=== PATIENT | male | born 1955 | race Caucasian/White ===

== ENCOUNTER 2017-09-04 13:54 | Day surgery (SDC) | payer OTHER ==
[~2017-09-04] VITALS: Ht 180.3 cm; Wt 106.6 kg
[~2017-09-04 13:54] MED LIST: LANS30EC PO; Norco 5-325 Ta1 EACH PO; TADA10TA PO; Zithromax250 MG PO
== END 2017-09-04 16:00 | disposition home or self-care (01) ==
LOC: ORSCSDS 13:54
PROVIDERS: Surgery
PROC: 0DBK8ZX Excision of Ascending Colon, Via Natural or Artificial Opening Endoscopic, Diagnostic (ICD-10-PCS; principal; 2017-09-04 15:15)
DX: Z12.11 Encounter for screening for malignant neoplasm of colon (principal); D12.2 Benign neoplasm of ascending colon; Z86.010 Personal history of colon polyps; Z80.0 Family history of malignant neoplasm of digestive organs; K21.9 Gastro-esophageal reflux disease without esophagitis; R03.0 Elevated blood-pressure reading, without diagnosis of hypertension; E66.9 Obesity, unspecified; Z68.34 Body mass index [BMI] 34.0-34.9, adult; Z79.899 Other long term (current) drug therapy
CPT/HCPCS: 88305; J7120

== ENCOUNTER 2017-09-11 05:33 | Day surgery (SDC) | payer OTHER ==
[~2017-09-11] VITALS: Ht 154.9 cm; Wt 110.7 kg
== END 2017-09-11 22:57 | disposition home or self-care (01) ==
LOC: ORSCMMR 05:33
PROVIDERS: Surgery
PROC: 0WUF0JZ Supplement Abdominal Wall with Synthetic Substitute, Open Approach (ICD-10-PCS; principal; 2017-09-11 07:30)
DX: K42.0 Umbilical hernia with obstruction, without gangrene (principal)
CPT/HCPCS: C1781; J0330; J0690; J1100; J2250; J2405; J3010; J7120

== ENCOUNTER 2018-05-28 08:13 | Emergency (ER) | payer OTHER ==
[~2018-05-28] VITALS: Ht 180.3 cm; Wt 99.8 kg
[2018-05-28 09:23] LABS: BASOPHILS ABSOLUTE AUTO 0.08 K/mm3 (0.00-0.23); BASOPHILS PERCENT AUTO 1 % (0-2); CPK Creatine Kinase 87 U/L (39-308); EOSINOPHILS ABSOLUTE AUTO 0.21 K/mm3 (0.00-0.68); EOSINOPHILS PERCENT AUTO 3 % (0-6); Hematocrit 44.1 % (37.0-53.0); IMMATURE GRAN ABSOLUTE AUTO 0.28 K/mm3 (0.00-0.10); IMMATURE GRAN PERCENT AUTO 3 % (0-1); LYMPHOCYTES ABSOLUTE AUTO 2.25 K/mm3 (0.84-5.20); LYMPHOCYTES PERCENT AUTO 28 % (21-46); MONOCYTES ABSOLUTE AUTO 0.83 K/mm3 (0.16-1.47); MONOCYTES PERCENT AUTO 10 % (4-13); Magnesium, Blood 2.1 mg/dL (1.6-2.4); Mean Corpuscular HGB 31.5 pg (26.0-34.0); Mean Corpuscular Volume 93 fL (80-100); Mean Platelet Volume 9.1 fL (9.1-12.4); NEUTROPHILS ABSOLUTE AUTO 4.49 K/mm3 (1.96-9.15); NEUTROPHILS PERCENT AUTO 55 % (41-73); Platelet Count 185 K/mm3 (150-400); RDW Coefficient Variation 11.4 % (11.7-14.2); RDW Standard Deviation 38.5 fL (35.1-46.3); Red Blood Cell Count 4.76 M/mm3 (4.30-5.90); Troponin I <0.015 ng/mL (0.000-0.040); White Blood Cell Count 8.14 K/mm3 (4.00-11.30)
[2018-05-28 09:24] LABS: Alanine Aminotransfer (ALT/SGP 42 U/L (12-78); Albumin, Blood 3.7 g/dL (3.4-5.0); Albumin/Globulin Ratio 1.1 (0.8-1.8); Alk Phos 81 U/L (50-136); Anion Gap 8 mmol/L (6-16); Aspartate Aminotrans (AST/SGOT 23 U/L (12-37); Bilirubin, Total 0.3 mg/dL (0.1-1.0); Blood Urea Nitrogen 14 mg/dL (8-24); Bun/Creatinine Ratio 13.9 (12.0-20.0); CO2, Blood 25 mmol/L (21-32); Calcium, Blood 8.3 mg/dL (8.5-10.1); Chloride, Blood 105 mmol/L (98-108); Creatinine, Blood 1.01 mg/dL (0.60-1.20); Globulin, Blood 3.5 g/dL (2.2-4.0); Glomerular Filtration Rate >60 (60-); Glucose, Blood 112 mg/dL (70-99); Potassium, Blood 4.3 mmol/L (3.5-5.5); Sodium, Blood 138 mmol/L (136-145); Total Protein, Blood 7.2 g/dL (6.4-8.2)
[2018-05-28] MEDS ORDERED: LOSA25 PO (10:10)
== END 2018-05-28 10:36 | disposition home or self-care (01) ==
LOC: ER 08:13
PROVIDERS: Emergency Medicine
DX: M79.601 Pain in right arm (principal); M79.602 Pain in left arm; M79.604 Pain in right leg; M79.605 Pain in left leg; I10 Essential (primary) hypertension
CPT/HCPCS: 71046; 72040; 80053; 82550; 83735; 83880; 84484; 85025; 85651; 86141; 93005; 93010; 99284-25

== ENCOUNTER 2018-10-11 11:30 | Day surgery (SDC) | payer OTHER ==
[~2018-10-11] VITALS: Ht 180.3 cm; Wt 109.8 kg
[~2018-10-11 11:30] MED LIST changes: +LOSA25 PO
--- NOTE | 2018-10-11 12:08 | NUR ---
PT ADMITTED TO [facility]. AGREES WITH PLANNED SURGERY. LUNG SOUNDS CLEAR.
--- NOTE | 2018-10-11 12:21 | NUR ---
NOZIN TO NARES BILATERALLY.
[2018-10-12 04:34] LABS: BASOPHILS ABSOLUTE AUTO 0.03 K/mm3 (0.00-0.23); BASOPHILS PERCENT AUTO 0 % (0-2); EOSINOPHILS PERCENT AUTO 0 % (0-6); Hematocrit 36.4 % (37.0-53.0); Hemoglobin 12.2 g/dL (13.5-17.5); IMMATURE GRAN ABSOLUTE AUTO 0.16 K/mm3 (0.00-0.10); IMMATURE GRAN PERCENT AUTO 1 % (0-1); LYMPHOCYTES ABSOLUTE AUTO 0.71 K/mm3 (0.84-5.20); LYMPHOCYTES PERCENT AUTO 6 % (21-46); MONOCYTES PERCENT AUTO 5 % (4-13); Mean Corpuscular HGB 31.4 pg (26.0-34.0); Mean Corpuscular HGB Conc 33.5 g/dL (31.5-36.5); Mean Corpuscular Volume 94 fL (80-100); Mean Platelet Volume 9.2 fL (9.1-12.4); NEUTROPHILS ABSOLUTE AUTO 11.28 K/mm3 (1.96-9.15); NEUTROPHILS PERCENT AUTO 88 % (41-73); Platelet Count 179 K/mm3 (150-400); RDW Coefficient Variation 11.6 % (11.7-14.2); RDW Standard Deviation 39.6 fL (35.1-46.3); Red Blood Cell Count 3.88 M/mm3 (4.30-5.90); White Blood Cell Count 12.88 K/mm3 (4.00-11.30)
[2018-10-12 05:10] LABS: Anion Gap 10 mmol/L (6-16); Blood Urea Nitrogen 17 mg/dL (8-24); Bun/Creatinine Ratio 18.6 (12.0-20.0); CO2, Blood 23 mmol/L (21-32); Calcium, Blood 8.3 mg/dL (8.5-10.1); Chloride, Blood 106 mmol/L (98-108); Creatinine, Blood 0.91 mg/dL (0.60-1.20); Glomerular Filtration Rate >60 (60-); Glucose, Blood 140 mg/dL (70-99); Potassium, Blood 4.5 mmol/L (3.5-5.5); Sodium, Blood 139 mmol/L (136-145)
--- NOTE | 2018-10-12 06:14 | NUR ---
SHIFT SUMMARY PT A&O X4 T/O SHIFT. POD#1 L TKA; DRESSING CDI T/O SHIFT. CRYOTHERAPY TO L KNEE. PAIN MANAGED PER EMAR. TOLERATING DIET WELL. RA; VSS; DENIES SOB AND CP. PT DENIES N/T IN EXT. PT UP TO TOILET AND AMBULATED IN TRAN WITH FWW, GB AND SBA. VASU'S AND SCD'S TO BLE'S. SIDE RAILS X3. CALL LIGHT IN REACH; PT DEMONSTRATES USE. WCTM UNTIL REPORT TO DAY SHIFT RN.
[2018-10-12] MEDS ORDERED: Percocet 5-3251 EACH PO ×2 (10:52)
[2018-10-12] MEDS ORDERED: LO-DOSE ASPIRIN81 MG PO ×2 (10:52)
--- NOTE | 2018-10-12 11:30 | NUR ---
DISCHARGE: PT RECENTLY DISCHARGED. PT/FAMILY REPORTS UNDERSTANDING OF DISCHARGE INSTRUCTIONS INCLUDING DRESSING CHANGES AND POLAR PAC. PT SENT WITH DRESSING. PT CLEARED BY THERAPY TO GO HOME. PT EATING, DRINKING, PASSING GAS AND VOIDING WITHOUT DIFF.
--- NOTE | 2018-10-16 08:07 | NUR ---
10/16/18 0807 Lani Freeman VERIFICATIONS: EDIT CHART.
== END 2018-10-12 11:30 | disposition home or self-care (01) ==
LOC: ORSCMMR 11:30 → SURS 11:32 → ORSCMMR 13:00 → ORD 13:00 → SURS 17:20 → ORSCMMR 10-12 11:30
PROVIDERS: Orthopaedic Surgery
PROC: 0SRD0JA Replacement of Left Knee Joint with Synthetic Substitute, Uncemented, Open Approach (ICD-10-PCS; principal; 2018-10-11 13:00)
DX: M17.12 Unilateral primary osteoarthritis, left knee (principal); Z01.818 Encounter for other preprocedural examination; Z23 Encounter for immunization; E66.9 Obesity, unspecified; Z68.33 Body mass index [BMI] 33.0-33.9, adult; Z79.899 Other long term (current) drug therapy
CPT/HCPCS: 36415; 73560-LT; 80048; 85025; 86850; 86900; 86901; 88300; 90686; 97110; 97116; 97162; 97530; C1776; J0171; J0690; J0735; J1100; J1885; J2405; J2795; J3010; J7120

== ENCOUNTER 2018-10-13 21:49 | Emergency (ER) | payer OTHER ==
[~2018-10-13] VITALS: Ht 182.9 cm; Wt 106.6 kg
[~2018-10-13 21:49] MED LIST changes: +LO-DOSE ASPIRIN81 MG PO; +Percocet 5-3251 EACH PO
[2018-10-13 22:58] LABS: BASOPHILS ABSOLUTE AUTO 0.09 K/mm3 (0.00-0.23); BASOPHILS PERCENT AUTO 1 % (0-2); EOSINOPHILS ABSOLUTE AUTO 0.04 K/mm3 (0.00-0.68); EOSINOPHILS PERCENT AUTO 0 % (0-6); Hematocrit 40.1 % (37.0-53.0); Hemoglobin 13.3 g/dL (13.5-17.5); IMMATURE GRAN PERCENT AUTO 2 % (0-1); LYMPHOCYTES ABSOLUTE AUTO 1.71 K/mm3 (0.84-5.20); LYMPHOCYTES PERCENT AUTO 13 % (21-46); MONOCYTES ABSOLUTE AUTO 1.81 K/mm3 (0.16-1.47); MONOCYTES PERCENT AUTO 14 % (4-13); Mean Corpuscular HGB 31.5 pg (26.0-34.0); Mean Corpuscular HGB Conc 33.2 g/dL (31.5-36.5); Mean Corpuscular Volume 95 fL (80-100); Mean Platelet Volume 9.1 fL (9.1-12.4); NEUTROPHILS ABSOLUTE AUTO 9.32 K/mm3 (1.96-9.15); NEUTROPHILS PERCENT AUTO 70 % (41-73); Platelet Count 215 K/mm3 (150-400); RDW Coefficient Variation 11.9 % (11.7-14.2); RDW Standard Deviation 40.9 fL (35.1-46.3); Red Blood Cell Count 4.22 M/mm3 (4.30-5.90); White Blood Cell Count 13.27 K/mm3 (4.00-11.30)
[2018-10-13 23:15] LABS: Alanine Aminotransfer (ALT/SGP 30 U/L (12-78); Albumin, Blood 3.6 g/dL (3.4-5.0); Alk Phos 75 U/L (50-136); Anion Gap 10 mmol/L (6-16); Aspartate Aminotrans (AST/SGOT 18 U/L (12-37); Bilirubin, Total 0.4 mg/dL (0.1-1.0); Blood Urea Nitrogen 11 mg/dL (8-24); Bun/Creatinine Ratio 12.7 (12.0-20.0); CO2, Blood 25 mmol/L (21-32); Calcium, Blood 8.9 mg/dL (8.5-10.1); Chloride, Blood 104 mmol/L (98-108); Creatinine, Blood 0.87 mg/dL (0.60-1.20); Globulin, Blood 3.7 g/dL (2.2-4.0); Glomerular Filtration Rate >60 (60-); Glucose, Blood 160 mg/dL (70-99); Sodium, Blood 139 mmol/L (136-145); Total Protein, Blood 7.3 g/dL (6.4-8.2)
== END 2018-10-14 02:46 | disposition home or self-care (01) ==
LOC: ER 21:49
PROVIDERS: Physician Assistant
DX: G89.18 Other acute postprocedural pain (principal); M25.562 Pain in left knee; M79.605 Pain in left leg; Z79.82 Long term (current) use of aspirin; Z79.899 Other long term (current) drug therapy
CPT/HCPCS: 36415; 80053; 85025; 93971; 96374; 99284-25; J1170

== ENCOUNTER 2019-04-07 12:12 | Observation (INO) | payer OTHER ==
[~2019-04-07] VITALS: Ht 182.9 cm; Wt 108.0 kg
[2019-04-07 13:04] LABS: Source, Urine Clean Catch
[2019-04-07 13:12] LABS: BASOPHILS ABSOLUTE AUTO 0.04 K/mm3 (0.00-0.23); BASOPHILS PERCENT AUTO 1 % (0-2); EOSINOPHILS ABSOLUTE AUTO 0.14 K/mm3 (0.00-0.68); EOSINOPHILS PERCENT AUTO 2 % (0-6); Hematocrit 42.4 % (37.0-53.0); Hemoglobin 14.4 g/dL (13.5-17.5); IMMATURE GRAN ABSOLUTE AUTO 0.13 K/mm3 (0.00-0.10); IMMATURE GRAN PERCENT AUTO 2 % (0-1); LYMPHOCYTES ABSOLUTE AUTO 1.26 K/mm3 (0.84-5.20); LYMPHOCYTES PERCENT AUTO 19 % (21-46); MONOCYTES ABSOLUTE AUTO 0.82 K/mm3 (0.16-1.47); MONOCYTES PERCENT AUTO 12 % (4-13); Mean Corpuscular HGB 31.2 pg (26.0-34.0); Mean Corpuscular Volume 92 fL (80-100); Mean Platelet Volume 9.1 fL (9.1-12.4); NEUTROPHILS ABSOLUTE AUTO 4.28 K/mm3 (1.96-9.15); NEUTROPHILS PERCENT AUTO 64 % (41-73); Platelet Count 163 K/mm3 (150-400); RDW Coefficient Variation 11.9 % (11.7-14.2); Red Blood Cell Count 4.61 M/mm3 (4.30-5.90); White Blood Cell Count 6.67 K/mm3 (4.00-11.30)
[2019-04-07 13:21] LABS: Bilirubin, Urine Neg (Neg); Blood, Urine 1+ (Neg); Glucose Qualitative, Urine Neg (Neg); Ketones, Urine Neg (Neg); Leukocyte Esterase, Urine Neg (Neg); Nitrite, Urine Neg (Neg); Protein, Urine Neg (Neg); Specific Gravity, Urine 1.015 (1.003-1.022); Urobilinogen, Urine NORM (Normal)
[2019-04-07 13:30] LABS: Alanine Aminotransfer (ALT/SGP 41 U/L (12-78); Albumin, Blood 3.8 g/dL (3.4-5.0); Albumin/Globulin Ratio 1.2 (0.8-1.8); Alk Phos 75 U/L (50-136); Anion Gap 7 mmol/L (6-16); Aspartate Aminotrans (AST/SGOT 20 U/L (12-37); Bilirubin, Total 0.5 mg/dL (0.1-1.0); Blood Urea Nitrogen 17 mg/dL (8-24); Bun/Creatinine Ratio 15.7 (12.0-20.0); CO2, Blood 25 mmol/L (21-32); Calcium, Blood 8.7 mg/dL (8.5-10.1); Chloride, Blood 106 mmol/L (98-108); Creatinine, Blood 1.08 mg/dL (0.60-1.20); Globulin, Blood 3.2 g/dL (2.2-4.0); Glomerular Filtration Rate >60 (60-); Glucose, Blood 111 mg/dL (70-99); Potassium, Blood 3.6 mmol/L (3.5-5.5); Sodium, Blood 138 mmol/L (136-145); Troponin I <0.015 ng/mL (0.000-0.040)
[2019-04-07 13:35] LABS: Appearance, Urine Clear (Clear); Color, Urine Yellow (P-Yellow)
[2019-04-07 13:37] LABS: Bacteria Rare /hpf; Red Blood Cells, Urine 0-2 /hpf (0-2); Squamous Epithelial Cells Few /hpf (Few); White Blood Cells, Urine 0-2 /hpf (0-5)
[2019-04-07] MEDS ORDERED: ATOR10 PO (15:38)
[2019-04-07] MEDS ORDERED: Prinivil10 MG PO (15:38)
--- NOTE | 2019-04-07 18:38 | NUR ---
TELE RECENLTY PLACED. TELE REPORTS PT SB 48.
[2019-04-07 21:26] LABS: CPK Creatine Kinase 79 U/L (39-308); Magnesium, Blood 2.2 mg/dL (1.6-2.4); Troponin I <0.015 ng/mL (0.000-0.040)
--- NOTE | 2019-04-08 04:32 | NUR ---
SHIFT SUMMARY NO ACUTE CHANGES TO REPORT TO OVERNIGHT, PT HAS RESTED FOR MOST OF THE NIGHT. HE HAS HAD NO COMPLAINTS OF PAIN. PT REPORTS SOME MILD DIZZINESS BUT HAS REPORTED IMPROVEMENT IN SYMPTOMS SINCE ADMISSION. INDEPENDENT IN THE ROOM. POSSIBLE DC TODAY. WILL CONTINUE TO MONITOR AND REPORT TO ONCOMING RN.
[2019-04-08 04:43] LABS: Hematocrit 39.9 % (37.0-53.0); Hemoglobin 13.2 g/dL (13.5-17.5); Mean Corpuscular HGB 31.1 pg (26.0-34.0); Mean Corpuscular HGB Conc 33.1 g/dL (31.5-36.5); Mean Corpuscular Volume 94 fL (80-100); Mean Platelet Volume 9.5 fL (9.1-12.4); Platelet Count 160 K/mm3 (150-400); RDW Coefficient Variation 12.3 % (11.7-14.2); RDW Standard Deviation 42.5 fL (35.1-46.3); Red Blood Cell Count 4.25 M/mm3 (4.30-5.90); White Blood Cell Count 6.93 K/mm3 (4.00-11.30)
[2019-04-08 05:02] LABS: CPK Creatine Kinase 69 U/L (39-308); Troponin I <0.015 ng/mL (0.000-0.040)
[2019-04-08 05:03] LABS: Alanine Aminotransfer (ALT/SGP 34 U/L (12-78); Albumin, Blood 3.3 g/dL (3.4-5.0); Albumin/Globulin Ratio 1.2 (0.8-1.8); Alk Phos 63 U/L (50-136); Anion Gap 7 mmol/L (6-16); Aspartate Aminotrans (AST/SGOT 13 U/L (12-37); Bilirubin, Total 0.5 mg/dL (0.1-1.0); Blood Urea Nitrogen 17 mg/dL (8-24); Bun/Creatinine Ratio 18.4 (12.0-20.0); CO2, Blood 24 mmol/L (21-32); Calcium, Blood 8.3 mg/dL (8.5-10.1); Chloride, Blood 110 mmol/L (98-108); Creatinine, Blood 0.92 mg/dL (0.60-1.20); Globulin, Blood 2.8 g/dL (2.2-4.0); Glomerular Filtration Rate >60 (60-); Glucose, Blood 101 mg/dL (70-99); Potassium, Blood 4.1 mmol/L (3.5-5.5); Sodium, Blood 141 mmol/L (136-145); Total Protein, Blood 6.1 g/dL (6.4-8.2)
--- NOTE | 2019-04-08 14:55 | NUR ---
DISCHARGE NOTE PT DISCHARGED AMBULATORY POV WITH AND IN NO ACUTE DISTRESS; PT AND FAMILY VERBALIZED UNDERSTANDING OF DISCHARGE INSTRUCTIONS AND IMPORTANCE OF TAKING MEDICATIONS PRESCRIBED. DIRECTED TO RETURN FOR TREATMENT IF SYMPTOMS RETURN OR WORSEN. ALL BELONGINGS TAKEN WITH PATIENT AT TIME OF DISCHARGE.
== END 2019-04-08 14:56 | disposition home or self-care (01) ==
LOC: ER 12:12 → MEDS 12:13
PROVIDERS: Physician Assistant; ADMIT Internal Medicine
DX: R55 Syncope and collapse (principal); R00.1 Bradycardia, unspecified; R68.84 Jaw pain; G93.40 Encephalopathy, unspecified; I10 Essential (primary) hypertension; Z79.899 Other long term (current) drug therapy; Y93.G2 Activity, grilling and smoking food; Y92.007 Garden or yard of unspecified non-institutional (private) residence as the place of occurrence of the external cause
CPT/HCPCS: 36415; 71046; 80053; 81001; 82550; 83735; 83880; 84484; 85025; 85027; 85379; 93005; 93010; 93306; 96360; 96361; 96372; 99285-25; G0378; J1650; J7030

== ENCOUNTER → 2024-05-16 | Outpatient (CLI) | payer MEDICARE ==
[~2024-05-16] MED LIST changes: +ATOR10 PO; +Prinivil10 MG PO
[2024-05-16 14:15] LABS: Albumin, Blood 3.9 g/dL (3.4-5.0); Albumin/Globulin Ratio 1.1 (0.8-1.8); Bilirubin, Total 0.7 mg/dL (0.1-1.0); Bun/Creatinine Ratio 15.6 (12.0-20.0); Calcium, Blood 9.3 mg/dL (8.5-10.1); Creatinine, Blood 1.09 mg/dL (0.60-1.20); Globulin, Blood 3.7 g/dL (2.2-4.0); Potassium, Blood 4.2 mmol/L (3.5-5.5); Total Protein, Blood 7.6 g/dL (6.4-8.2)
== END ==
LOC: LAB SHORT 13:59 → LAB 13:59
PROVIDERS: Family Medicine
DX: I10 Essential (primary) hypertension (principal)
CPT/HCPCS: 80053

== ENCOUNTER 2024-12-05 06:59 | Day surgery (SDC) | payer MEDICARE ==
[~2024-12-05] VITALS: Ht 180.3 cm; Wt 104.5 kg
[~2024-12-05 06:59] MED LIST changes: +Lactated Ringer's 1,000 ML IV ONE
[2024-12-05] MEDS ORDERED: CeFAZolin Sodium 2,000 MG VIAL ONE (07:41)
[2024-12-05] MEDS ORDERED: Lactated Ringer's 1,000 ML IV ONE (08:13)
[2024-12-05] MEDS ORDERED: VALS80 PO (08:14)
[2024-12-05] MEDS ORDERED: propofoL 20 ML IV ONE (08:49)
[2024-12-05] MEDS ORDERED: FentaNYL Citrate 50 MCG/ML 2 ML Injection ONE (08:49)
[2024-12-05] MEDS ORDERED: Dexamethasone Sod Phos 10 MG/ML 1ML VIAL ONE (08:56)
[2024-12-05] MEDS ORDERED: Ondansetron HCl 2 MG / ML 2ML Vial ONE (08:56)
[2024-12-05] MEDS ORDERED: Rocuronium Bromide 10 MG/ML 5ML Injection IV ONE (08:56)
[2024-12-05] MEDS ORDERED: Bupivacaine 0.5% HCl 5 MG/ML 30MLVIAL INJ ONE (09:08)
[2024-12-05] MEDS ORDERED: Sugammadex Sodium 200 MG/2ML SDV (100 MG/ML) ONE (10:05)
[2024-12-05] MEDS ORDERED: Phenylephrine HCl 100 MCG/ML-NS 10MLSYR (1MG/10ML) ONE (10:08)
--- NOTE | 2024-12-05 11:23 | NUR ---
12/05/24 1123 LorenzoJamar colon ASSISTED PT WITH DRESSING INCLUDING PUTTING ON ATHLETIC SUPPORT.
[2024-12-05 11:25] VITALS: BP 111/60
== END 2024-12-05 11:14 | disposition home or self-care (01) ==
LOC: ORSCSDS 06:59
PROVIDERS: Surgery
PROC: 0YU60JZ Supplement Left Inguinal Region with Synthetic Substitute, Open Approach (ICD-10-PCS; principal; 2024-12-05 08:30)
DX: K40.90 Unilateral inguinal hernia, without obstruction or gangrene, not specified as recurrent (principal); I10 Essential (primary) hypertension
CPT/HCPCS: C1781; J0690; J1100; J2371; J2405; J2704; J3010; J7120

== ENCOUNTER 2025-01-31 09:07 | Day surgery (SDC) | payer MEDICARE ==
[~2025-01-31] VITALS: Ht 180.3 cm; Wt 102.8 kg
[~2025-01-31 09:07] MED LIST changes: +Glycopyrrolate 0.2 MG/ML 1MLVIAL ONE; -Lactated Ringer's 1,000 ML IV ONE; +Ondansetron HCl 2 MG / ML 2ML Vial ONE; +VALS80 PO; +ePHEDrine Sulfate 50 MG/ML 1ML Injection ONE
[2025-01-31 12:31] VITALS: BP 127/58
== END 2025-01-31 12:24 | disposition home or self-care (01) ==
LOC: ORSCSDS 09:07
PROVIDERS: Surgery
PROC: 0DBK8ZX Excision of Ascending Colon, Via Natural or Artificial Opening Endoscopic, Diagnostic (ICD-10-PCS; principal; 2025-01-31 10:30)
DX: Z12.11 Encounter for screening for malignant neoplasm of colon (principal); Z86.0101 Personal history of adenomatous and serrated colon polyps; D12.2 Benign neoplasm of ascending colon; E78.5 Hyperlipidemia, unspecified; K21.9 Gastro-esophageal reflux disease without esophagitis; I10 Essential (primary) hypertension; I44.0 Atrioventricular block, first degree; Z79.899 Other long term (current) drug therapy
CPT/HCPCS: 88305; J0461; J2003; J2405; J2704; J7120